=== PATIENT | male | born 1960 | race Hispanic/Latino ===

== ENCOUNTER 2018-05-26 18:59 | Emergency (ER) | payer SELFPAY ==
[2018-05-26 19:26] VITALS: BMI 23.8
[2018-05-26] MEDS ORDERED: Sodium Chloride 0.9% 1,000 ML IV STA (19:46)
--- NOTE | 2018-05-26 20:22 | ED PDOC ---
Arrival/HPI - General Chief Complaint: Abdominal Pain Time Seen by Provider: 05/26/18 19:38 Historian: Patient - History of Present Illness Narrative History of Present Illness (Text): 05/26/18 19:45 Angelo Webster is a 58 year old male, whose past medical history includes HIV, who presents to the Emergency department complaining of abdominal discomfort for the past day. Patient reports associated nausea and 1 episode of vomiting. Patient states the night prior, he had eaten chicken and states he did not feel well following. Patient denies any fever, chills, diarrhea, urinary symptoms, headache, dizziness, or any other complaints. Symptom Onset: Gradual Symptom Course: Unchanged Activities at Onset: Light Context: Home Past Medical History - Provider Review Nursing Documentation Reviewed: Yes - Cardiac Hx Cardiac Disorders: No - Pulmonary Hx Respiratory Disorders: No - Neurological Hx Neurological Disorder: No - HEENT Hx HEENT Disorder: No - Renal Hx Renal Disorder: No - Endocrine/Metabolic Hx Endocrine Disorders: No - Integumentary Hx Dermatological Disorder: No - Musculoskeletal/Rheumatological Hx Musculoskeletal Disorders: No - Gastrointestinal Hx Gastrointestinal Disorders: No - Genitourinary/Gynecological Hx Genitourinary Disorders: No - Psychiatric Hx Anxiety: Yes Hx Depression: Yes Hx Substance Use: No - Anesthesia Hx Anesthesia: No Family/Social History - Physician Review Nursing Documentation Reviewed: Yes Family/Social History: Unknown Family HX Smoking Status: Never Smoked Hx Alcohol Use: No Hx Substance Use: No Allergies/Home Meds Allergies/Adverse Reactions: Allergies No Known Allergies Allergy (Verified 05/26/18 19:26) Home Medications: Home Meds Medication Instructions Recorded Confirmed Elviteg/Cob/Emtri/Tenof Alafen 1 tab PO DAILY 05/26/18 05/26/18 [Genvoya Tablet] Vilazodone HCl [Viibryd] 10 mg PO DAILY 05/26/18 05/26/18 Review of Systems - Physician Review All systems were reviewed & negative as marked: Yes - Review of Systems Constitutional: Normal. absent: Fevers Eyes: Normal ENT: Normal Respiratory: Normal. absent: SOB, Cough Cardiovascular: Normal. absent: Chest Pain Gastrointestinal: Abdominal Pain, Nausea, Vomiting Genitourinary Male: Normal. absent: Dysuria, Frequency, Hematuria, Urinary Output Changes Musculoskeletal: Normal. absent: Back Pain, Neck Pain Skin: Normal. absent: Rash Neurological: Normal. absent: Headache, Dizziness Endocrine: Normal Hemo/Lymphatic: Normal Psychiatric: Normal Physical Exam Vital Signs Reviewed: Yes Vital Signs Temp Pulse Resp BP Pulse Ox 05/26/18 19:30 98.2 F 85 16 147/85 99 Temperature: Afebrile Blood Pressure: Normal Pulse: Regular Respiratory Rate: Normal Appearance: Positive for: Well-Appearing, Non-Toxic, Comfortable Pain Distress: None Mental Status: Positive for: Alert and Oriented X 3 - Systems Exam Head: Present: Atraumatic, Normocephalic Pupils: Present: PERRL Extroacular Muscles: Present: EOMI Conjunctiva: Present: Normal Mouth: Present: Moist Mucous Membranes Neck: Present: Normal Range of Motion Respiratory/Chest: Present: Clear to Auscultation, Good Air Exchange. No: Respiratory Distress, Accessory Muscle Use Cardiovascular: Present: Regular Rate and Rhythm, Normal S1, S2. No: Murmurs Abdomen: Present: Tenderness (diffuse mid and lower). No: Distention, Peritoneal Signs Back: Present: Normal Inspection Upper Extremity: Present: Normal Inspection. No: Cyanosis, Edema Lower Extremity: Present: Normal Inspection. No: Edema Neurological: Present: GCS=15, CN II-XII Intact, Speech Normal Skin: Present: Warm, Dry, Normal Color. No: Rashes Psychiatric: Present: Alert, Oriented x 3, Normal Insight, Normal Concentration Medical Decision Making ED Course and Treatment: 05/26/18 19:45 Impression: 58 year old male presents for abdominal pain and vomiting for the past day. Plan: -- US Abdomen -- Labs, lipase -- Urinalysis -- IV fluids -- Pepcid -- Toradol -- Reassess and disposition Progress Notes: 05/26/18 21:38 US Abdomen reviewed, shows: The liver shows increased echogenicity without evidence of mass or defect measuring 15.73 x 3.5 cm. There is no intra or extrahepatic biliary ductal dilatation. The common bile duct measures 0.74 cm. The gallbladder is physiologically distended without evidence of calculi. The gallbladder wall is not thickened measuring 0.3 cm and there is no pericholecystic fluid. The visualized portions of abdominal aorta and inferior vena cava present no abnormalities. The visualized portions of the pancreas are unremarkable. The spleen is of uniform echo texture and does not appear enlarged measuring 9.9 x 7.36 cm. The right kidney measures 12.34 x 4.75 x 5.41 cn and the left kidney measures 11.11 x 6.07 x 6.13 cm. Both kidneys are free of hydronephrosis. IMPRESSION: Fatty liver. No acute pathology. Electronically signed on May 26, 2018 9:09:47 PM EDT by: Holden Philippe M.D., FAYE Certified By [facility] Fellowship Trained MRI and CT Specialist 05/26/18 23:30 Labs noted, WBC: 15.0. CT Abdomen and Pelvis ordered. 05/27/18 02:56 CT Abdomen and Pelvis reviewed, shows:The visualized lung bases are unremarkable. Normal unenhanced liver. Normal gallbladder and extrahepatic biliary system. Normal unenhanced spleen. Normal pancreas. Normal bilateral adrenal glands. Normal size of the right kidney. There is no right renal mass. There are no right renal calculi. There is no right hydronephrosis. Normal visualized right ureter. Normal size of the left kidney. There is no left renal mass. There are no left renal calculi. There is no left hydronephrosis. Normal visualized left ureter. Normal visualized stomach. Normal small intestine. Normal colon. The appendix is enlarged measuring 1.2 cm in its largest transverse dimension. Prominent surrounding inflammatory fat stranding is noted. There is no demonstrated peritoneal fluid. Atherosclerotic, tortuous ectatic abdominal aorta. Normal inferior vena cava. Normal retroperitoneum. Normal urinary bladder. There is no pelvic mass lesion or lymphadenopathy. There is no pelvic fluid. Normal abdominal wall. Normal osseous structures. IMPRESSION: Uncomplicated acute appendicitis. 05/27/18 03:03 Case discussed with medical record assistant director marketing communications, who is aware and agrees with plan. 05/27/18 03:06 Case discussed with surgical training specialist director marketing communications, who is aware and agrees to evaluate pt. 05/27/18 03:24 Pt seen and evaluated by surgical training specialist in Emergency department. Pt states he does not wish to stay and would prefer for f/u with his surgeon at [facility]. The patient declines to have further medical evaluation and treatment and wishes to leave the Emergency Department. This action is against my medical advice to the patient, and with informed refusal. The patient was told that evaluation and treatment are necessary and a full explanation of the rationale was given. The risks of leaving were explained to the patient and include, but are not limited to, worsening of known or currently unknown conditions, permanent disability and from undiagnosed or untreated conditions The patient has the capacity to make this informed decision and understands the clinical situation and my explanation of the risks of leaving. The patient voluntarily accepts these risks, and a signed AMA form documenting our conversation was obtained. The patient was given the opportunity to ask questions and reconsider. The patient was encouraged to return to the Emergency Department at any time for further care. - Lab Interpretations I have reviewed the lab results: Yes - RAD Interpretation Radiology Orders: 05/26/18 19:46 ABDOMEN COMPLETE [US] [employer] Structural Engineer: Radiologist - Medication Orders Current Medication Orders: Sodium Chloride (Sodium Chloride 0.9%) 1,000 mls @ 999 mls/hr IV .Q1H1M STA Stop: 05/26/18 20:46 Discontinued Medications Famotidine (Pepcid) 20 mg IVP STAT STA Stop: 05/26/18 19:47 Ketorolac Tromethamine (Toradol) 30 mg IVP ONCE ONE Stop: 05/26/18 19:47 - Scribe Statement The provider has reviewed the documentation as recorded by the Hang Vicente Provider Scribe Attestation: All medical record entries made by the Scribe were at my direction and personally dictated by me. I have reviewed the chart and agree that the record accurately reflects my personal performance of the history, physical exam, medical decision making, and the department course for this patient. I have also personally directed, reviewed, and agree with the discharge instructions and disposition. Disposition/Present on Arrival - Present on Arrival Any Indicators Present on Arrival: No History of DVT/PE: No History of Uncontrolled Diabetes: No Urinary Catheter: No History of Decub. Ulcer: No History Surgical Site Infection Following: None - Disposition Have Diagnosis and Disposition been Completed?: Yes Diagnosis: Appendicitis Disposition: AGAINST MEDICAL ADVICE Disposition Time: 03:50 Condition: STABLE Forms: [employer] (Swedish)
[2018-05-26 21:31] LABS: HEMOGLOBIN 14.9 g/dL (14.0-18.0); MEAN CELL VOLUME 87.1 fl (80.0-105.0); MEAN CORPUSCULAR HEMOGLOBIN 30.6 pg (25.0-35.0); MEAN CORPUSCULAR HGB CONC 35.1 g/dl (31.0-37.0); RBC 4.87 10^6/uL (3.5-6.1); RED CELL DISTRIBUTION WIDTH 13.9 % (11.5-14.5)
[2018-05-26 21:39] LABS: URINE APPEARANCE CLEAR (CLEAR); URINE BILIRUBIN NEGATIVE (NEGATIVE); URINE BLOOD TRACE-INTACT (NEGATIVE); URINE COLOR YELLOW (YELLOW); URINE GLUCOSE (UA) NEGATIVE (NEGATIVE); URINE LEUKOCYTE ESTERASE NEGATIVE Leu/uL (NEGATIVE); URINE PROTEIN 30 mg/dL (<30 mg/dL)
[2018-05-26 21:42] LABS: ALB/GLOB RATIO 1.1 (1.1-1.8); ALBUMIN 4.7 g/dL (3.0-4.8); ALT/SGPT 33 U/L (7-56); AST/SGOT 35 U/L (17-59); BLOOD UREA NITROGEN 14 mg/dL (7-21); CALCIUM 9.8 mg/dL (8.4-10.5); GFR NON-AFRICAN AMERICAN > 60; LIPASE 79 U/L (23-300)
[2018-05-26 21:43] LABS: URINE BACTERIA NEG (NEG); URINE RBC 0 - 2 /hpf (0-2); URINE WBC NEGATIVE /hpf (0-6)
[2018-05-26] MEDS ORDERED: Sodium Chloride 0.9% 1,000 ML IV SCH (23:30)
[2018-05-27] MEDS ORDERED: Iohexol 350 MG/100 ML VIAL ONE (01:07)
[2018-05-27 02:15] VITALS: BP 134/65; PULSE 104; RESP 18; TEMP 99.5; O2SAT 95
[2018-05-27] MEDS ORDERED: cefTRIAXone 1 gm 1 GM/100 ML BAG IV STA (03:00)
[2018-05-27] MEDS ORDERED: metroNIDAZOLE IV 500 mg/100 ml 500 MG/100 ML BAG IVPB STA (03:03)
--- NOTE | 2018-05-27 06:10 | US ---
Date of service: 05/26/2018 HISTORY: pain COMPARISON: None. TECHNIQUE: Sonographic evaluation of the abdomen. FINDINGS: LIVER: Measures 15.7 cm. There is diffuse increased echogenicity of the liver parenchyma. No mass. No intrahepatic bile duct dilatation. GALLBLADDER: There are no gallstones, wall thickening or pericholecystic fluid. The sonographic Waters's sign is negative. COMMON BILE DUCT: Measures 7.4 mm. No stones. No dilatation. PANCREAS: Unremarkable as visualized. No mass. No ductal dilatation. RIGHT KIDNEY: Measures 12.3cm. Normal echogenicity. No calculus, mass, or hydronephrosis. LEFT KIDNEY: Measures 11.811cm. Normal echogenicity. No calculus, mass, or hydronephrosis. SPLEEN: Normal in size and contour. No mass. AORTA: No aneurysmal dilatation. IVC: Unremarkable. OTHER FINDINGS: None. IMPRESSION: No cholelithiasis or biliary dilatation. Diffuse increased echogenicity in the liver may reflect hepatic steatosis however parenchymal infectious/ inflammatory etiologies cannot be entirely excluded. Clinical and laboratory correlation is advised. A preliminary report was provided by [employer].
--- NOTE | 2018-05-27 09:33 | CT ---
Date of service: 05/27/2018 PROCEDURE: CT Abdomen and Pelvis without intravenous contrast HISTORY: abdominal pain COMPARISON: None. TECHNIQUE: CT scan of the abdomen and pelvis was performed without administration of intravenous contrast. Oral contrast was not administered. Coronal and sagittal reformatted images were obtained. . Contrast dose: Radiation dose: Total exam DLP = 431.16 mGy-cm. This CT exam was performed using one or more of the following dose reduction techniques: Automated exposure control, adjustment of the mA and/or kV according to patient size, and/or use of iterative reconstruction technique. FINDINGS: LOWER THORAX: The visualized lungs are clear. LIVER: Normal in size. No intrahepatic ductal dilatation. GALLBLADDER AND BILE DUCTS: No calcified gallstones. No biliary dilatation PANCREAS: Normal in size. No ductal dilatation. SPLEEN: Normal in size. ADRENALS: Normal in size. No discrete nodule. KIDNEYS AND URETERS: Normal in size without nephrolithiasis. No hydronephrosis. VASCULATURE: No aortic aneurysm. BOWEL: The small bowel loops are normal in caliber. The colon is normal in size. No bowel dilatation or wall thickening. No bowel obstruction. APPENDIX: The appendix is distended and there is wall thickening with mild inflammatory changes in the right lower quadrant fat. No perforation or abscess. PERITONEUM: No free fluid. No free air. LYMPH NODES: No enlarged lymph nodes. BLADDER: Well distended and grossly normal in appearance. REPRODUCTIVE: There is mild enlargement of the prostate gland. Please correlate with PSA levels. BONES: No acute fracture. OTHER FINDINGS: None. IMPRESSION: Acute appendicitis. No perforation or abscess. A preliminary report was provided by [employer].
== END 2018-05-27 05:27 | disposition left against medical advice (07) ==
LOC: ED 18:59
DX: K37 Unspecified appendicitis (principal)
CPT/HCPCS: 74176; 76700; 80053; 81001; 83690; 85027; 96361; 96374; 96375; 99284; J1885; J7030; Q9967